=== PATIENT | female | born 1990 | race Two or more races ===

== ENCOUNTER 2019-09-25 07:00 | Inpatient (IN) | payer MEDICAID ==
[2019-09-25] MEDS ORDERED: Misoprostol 25 MCG (1/4 of 100 MCG) Tab VAG ONE (07:13)
[2019-09-25] MEDS ORDERED: Lactated Ringers 1,000 ML IV ONE (08:35)
[2019-09-25] MEDS ORDERED: Sodium Chloride 0.9% 10 ML Syringe FLUSH PRN (08:39)
[2019-09-25] MEDS: Lactated Ringers 1,000 ML IV SCH ×2 (12:09→20:11)
[2019-09-25] MEDS ORDERED: Nalbuphine 10 MG/1 ML Vial IVPUSH PRN (21:06)
[2019-09-25] MEDS ORDERED: Nalbuphine 10 MG/1 ML Vial ONE (21:14)
--- NOTE | 2019-09-25 23:15 | PCM.DEL ---
L & D Note - General Info Date of Service: 09/25/19 - Delivery Note Labor: Augmented by ARM, Induced by Oxytocin Cervical Ripening Method: Misoprostil, Oxytocin Delivery Outcome: Livebirth Infant Delivery Method: Spontaneous Vaginal Delivery-Single Presentation: Left Occiput Anterior (AURELIANO) Nuchal Cord: Present Anesthesia Type: None Episiotomy Type: None Laceration: Periurethral Placenta: Intact, Spontaneous Cord: 3 Vessels Resuscitation Needed: No [place]: Stimulated, Warmed, [place] Used, Warmer Used Second Stage Interventions: Reports: Second Nurse Assessed Progress of Descent, Second Nurse Reviewed Heart Tones, Encouragement Given, Nurse Consultation Requested, Pushing Effectively, Pushing, Birthing Stool Induction Criteria - Mckeon Score Mckeon Score Dilation: 1-2 cm Mckeon Score Consistency: Soft Mckeon Score Cervix Position: Posterior Mckeon Score Presenting Part: Reports: Cephalic - Induction Gestational Age >/= 39 wks: Yes Reassuring Monitoring Strip: Yes Absence of Tachy Systole: Yes - Augmentation Estimated Pelvis: Reports: Adequate Weight Estimated:: Reports: SGA Reassuring Monitoring Strip: Yes Absence of Tachy Systole: Yes - General Info Date of Service: 09/25/19 Functional Status: Reports: Pain Controlled - Review of Systems General: Reports: No Symptoms HEENT: Reports: No Symptoms Pulmonary: Reports: No Symptoms Cardiovascular: Reports: No Symptoms Gastrointestinal: Reports: No Symptoms Genitourinary: Reports: No Symptoms Musculoskeletal: Reports: No Symptoms Skin: Reports: No Symptoms Neurological: Reports: No Symptoms Psychiatric: Reports: No Symptoms - Patient Data Vitals - Most Recent: Last Vital Signs Temp 97.7 F 09/25/19 08:25 Pulse 66 09/25/19 22:00 Resp 20 09/25/19 21:30 BP 158/86 H 09/25/19 22:00 Pulse Ox 100 09/25/19 12:10 Weight - Most Recent: 74.843 kg I&O - Last 24 Hours: Intake & Output 09/25/19 09/25/19 09/26/19 14:59 22:59 06:59 Intake Total 1340 Balance 1340 Med Orders - Current: Current Medications Oxytocin/Sodium Chloride (Pitocin In Ns 20 Units/1,000 Ml) 20 unit in 1,000 mls @ 6 mls/hr IV TITRATE CHRISTO; Protocol Last Titration: 09/25/19 21:20 Dose: 4 munits/min, 12 mls/hr Lactated Ringer's (Ringers, Lactated) 1,000 mls @ 125 mls/hr IV ASDIRECTED CHRISTO Last Admin: 09/25/19 20:11 Dose: 125 mls/hr Nalbuphine HCl (Nubain) 10 mg IVPUSH Q3H PRN PRN Reason: Pain Last Admin: 09/25/19 21:18 Dose: 10 mg Sodium Chloride (Saline Flush) 10 ml FLUSH ASDIRECTED PRN PRN Reason: Keep Vein Open Last Admin: 09/25/19 08:15 Dose: 10 ml Discontinued Medications Lactated Ringer's (Ringers, Lactated) 1,000 mls @ 999 mls/hr IV BOLUS ONE Stop: 09/25/19 09:35 Last Admin: 09/25/19 08:35 Dose: 999 mls/hr Misoprostol (Cytotec) 25 mcg VAG ONETIME ONE Stop: 09/25/19 07:14 Last Admin: 09/25/19 08:06 Dose: 25 mcg Nalbuphine HCl (Nubain) Confirm Administered Dose 10 mg .ROUTE .STK-MED ONE Stop: 09/25/19 21:15 Last Admin: 09/25/19 21:26 Dose: Not Given - Exam General: Alert, Oriented HEENT: Pupils Equal, Pupils Reactive, EOMI, Mucous Membr. Moist/Cable Neck: Supple Lungs: Clear to Auscultation, Normal Respiratory Effort Cardiovascular: Regular Rate, Regular Rhythm GI/Abdominal Exam: Normal Bowel Sounds, Soft, Non-Tender, No Organomegaly, No Distention, No Abnormal Bruit, No Mass, Pelvis Stable (Female) Exam: Normal External Exam, Normal Speculum Exam, Normal Bimanual Exam Back Exam: Normal Inspection, Full Range of Motion Extremities: Normal Inspection, Normal Range of Motion, Non-Tender, No Pedal Edema, Normal Capillary Refill Skin: Warm, Dry, Intact Wound/Incisions: Healing Well Neurological: No New Focal Deficit Psy/Mental Status: Alert, Normal Affect, Normal Mood - Problem List & Annotations (1) Delivery normal SNOMED Code(s): 11899929, 484182923 Code(s): O80 - ENCOUNTER FOR FULL-TERM UNCOMPLICATED DELIVERY Status: Acute Current Visit: Yes - Problem List Review Problem List Initiated/Reviewed/Updated: Yes - My Orders Last 24 Hours: My Active Orders 09/25/19 07:10 Patient Status [ADT] Routine Monitoring [RC] CONTINUOUS Resuscitation Status Routine 09/25/19 08:26 Biophysical Profile [WOMSER] Stat 09/25/19 08:39 Sodium Chloride 0.9% [Saline Flush] 10 ml FLUSH ASDIRECTED PRN Peripheral IV Insertion Adult [OM.PC] Routine 09/25/19 09:28 BPP wo NST [US] Routine 09/25/19 10:40 Communication Order [RC] ASDIRECTED Communication Order [RC] ASDIRECTED Communication Order [RC] ASDIRECTED Communication Order [RC] ASDIRECTED Notify Provider [RC] PRN Notify Provider [RC] STAT Vital Signs [RC] PER UNIT ROUTINE 09/25/19 12:30 Lactated Ringers [Ringers, Lactated] 1,000 ml IV ASDIRECTED Oxytocin/Normal Saline [Pitocin in NS 20 Units/1,000 ML] 20 unit in 1,000 ml IV TITRATE 09/25/19 21:06 Nalbuphine [Nubain] 10 mg IVPUSH Q3H PRN 09/25/19 23:12 Vital Signs [RC] PFP Ibuprofen [Motrin] 600 mg PO Q4H PRN Assess Lochia [WOMSER] Per Unit Routine 09/25/19 Breakfast Regular Diet [DIET] 09/26/19 05:11 CBC WITH AUTO DIFF [HEME] AM - Plan Plan:: Routine care
[2019-09-26] MEDS: Ibuprofen 600 MG Tab PO PRN ×2 (01:35→10:51)
--- NOTE | 2019-09-26 08:51 | PCM.PNPP ---
- General Info Date of Service: 09/26/19 Subjective Update: Dong well. Breast feeding Functional Status: Reports: Pain Controlled - Review of Systems General: Reports: No Symptoms HEENT: Reports: No Symptoms Pulmonary: Reports: No Symptoms Cardiovascular: Reports: No Symptoms Gastrointestinal: Reports: No Symptoms Genitourinary: Reports: No Symptoms Musculoskeletal: Reports: No Symptoms Skin: Reports: No Symptoms Neurological: Reports: No Symptoms Psychiatric: Reports: No Symptoms - General Info Date of Service: 09/27/19 - Patient Data Vital Signs - Most Recent: Last Vital Signs Temp 97.7 F 09/25/19 08:25 Pulse 81 09/26/19 01:13 Resp 20 09/25/19 21:30 BP 107/66 09/26/19 01:13 Pulse Ox 100 09/25/19 12:10 Weight - Most Recent: 74.843 kg I&O - Last 24 Hours: Intake & Output 09/25/19 09/26/19 09/26/19 22:59 06:59 14:59 Intake Total 1340 1947 Balance 1340 1947 Lab Results - Last 24 Hours: Laboratory Results - last 24 hr 09/26/19 Range/Units 06:10 WBC 15.3 H (4.5-12.0) X10-3/uL RBC 3.95 (3.23-5.20) x10(6)uL Hgb 10.1 L (11.5-15.5) g/dL Hct 31.0 (30.0-51.3) % MCV 78.5 L (80-96) fL MCH 25.5 L (27.7-33.6) pg MCHC 32.5 (32.2-35.4) g/dL RDW 14.6 (11.5-15.5) % Plt Count 252 (125-369) X10(3)uL MPV 11.1 H (7.4-10.4) fL Neut % (Auto) 81.4 (46-82) % Lymph % (Auto) 12.4 L (13-37) % Warren % (Auto) 5.8 (4-12) % Eos % (Auto) 0 L (1.0-5.0) % Baso % (Auto) 0 (0-2) % Neut # (Auto) 12.5 H (1.6-8.3) # Lymph # (Auto) 1.9 (0.6-5.0) # Warren # (Auto) 0.9 (0.0-1.3) # Eos # (Auto) 0.0 (0.0-0.8) # Baso # (Auto) 0.0 (0.0-0.2) # Med Orders - Current: Current Medications Ibuprofen (Motrin) 600 mg PO Q4H PRN PRN Reason: Pain Last Admin: 09/26/19 01:35 Dose: 600 mg Nalbuphine HCl (Nubain) 10 mg IVPUSH Q3H PRN PRN Reason: Pain Last Admin: 09/25/19 21:18 Dose: 10 mg Sodium Chloride (Saline Flush) 10 ml FLUSH ASDIRECTED PRN PRN Reason: Keep Vein Open Last Admin: 09/25/19 08:15 Dose: 10 ml Discontinued Medications Lactated Ringer's (Ringers, Lactated) 1,000 mls @ 999 mls/hr IV BOLUS ONE Stop: 09/25/19 09:35 Last Admin: 09/25/19 08:35 Dose: 999 mls/hr Oxytocin/Sodium Chloride (Pitocin In Ns 20 Units/1,000 Ml) 20 unit in 1,000 mls @ 6 mls/hr IV TITRATE CHRISTO; Protocol Last Titration: 09/25/19 21:20 Dose: 4 munits/min, 12 mls/hr Lactated Ringer's (Ringers, Lactated) 1,000 mls @ 125 mls/hr IV ASDIRECTED CHRISTO Last Admin: 09/25/19 20:11 Dose: 125 mls/hr Misoprostol (Cytotec) 25 mcg VAG ONETIME ONE Stop: 09/25/19 07:14 Last Admin: 09/25/19 08:06 Dose: 25 mcg Nalbuphine HCl (Nubain) Confirm Administered Dose 10 mg .ROUTE .STK-MED ONE Stop: 09/25/19 21:15 Last Admin: 09/25/19 21:26 Dose: Not Given - Interaction Infant Disposition, : [place] in Room with Family Support Person: - Recovery Exam Fundal Tone: Firm Fundal Level: 1 Fingerbreadths Above Umbilicus Fundal Placement: Midline Lochia Amount: Small Lochia Color: Rubra/Red Perineum Description: Edematous Episiotomy/Laceration: None Bladder Status: Voiding - Exam General: Alert, Oriented HEENT: Pupils Equal Neck: Supple Lungs: Clear to Auscultation, Normal Respiratory Effort Cardiovascular: Regular Rate, Regular Rhythm GI/Abdominal Exam: Normal Bowel Sounds, Soft, Non-Tender, No Organomegaly, No Distention, No Abnormal Bruit, No Mass, Pelvis Stable Extremities: Normal Inspection, Normal Range of Motion, Non-Tender, No Pedal Edema, Normal Capillary Refill Skin: Warm, Dry, Intact Wound/Incisions: Healing Well Neurological: No New Focal Deficit Psy/Mental Status: Alert, Normal Affect, Normal Mood - Problem List & Annotations (1) Delivery normal SNOMED Code(s): 33394126, [id number] Code(s): O80 - ENCOUNTER FOR FULL-TERM UNCOMPLICATED DELIVERY Status: Acute Current Visit: Yes - Problem List Review Problem List Initiated/Reviewed/Updated: Yes - My Orders Last 24 Hours: My Active Orders 09/25/19 08:26 Biophysical Profile [WOMSER] Stat 09/25/19 08:39 Sodium Chloride 0.9% [Saline Flush] 10 ml FLUSH ASDIRECTED PRN Peripheral IV Insertion Adult [OM.PC] Routine 09/25/19 09:28 BPP wo NST [US] Routine 09/25/19 10:40 Vital Signs [RC] PER UNIT ROUTINE 09/25/19 19:25 Patient Status [ADT] Routine 09/25/19 21:06 Nalbuphine [Nubain] 10 mg IVPUSH Q3H PRN 09/25/19 23:12 Vital Signs [RC] PFP Ibuprofen [Motrin] 600 mg PO Q4H PRN Assess Lochia [WOMSER] Per Unit Routine - Plan Plan:: Routine care
[2019-09-27] MEDS: Ibuprofen 600 MG Tab PO PRN (09:00)
--- NOTE | 2019-09-27 09:19 | PCM.PNPP ---
- General Info Date of Service: 09/27/19 Subjective Update: Dong well. Breast feeding Functional Status: Reports: Pain Controlled - Review of Systems General: Reports: No Symptoms Pulmonary: Reports: No Symptoms Cardiovascular: Reports: No Symptoms Gastrointestinal: Reports: No Symptoms - General Info Date of Service: 09/27/19 - Patient Data Vital Signs - Most Recent: Last Vital Signs Temp 98.4 F 09/27/19 08:55 Pulse 74 09/27/19 08:55 Resp 16 09/27/19 08:55 BP 115/63 09/27/19 08:55 Pulse Ox 100 09/27/19 08:55 Weight - Most Recent: 74.843 kg Med Orders - Current: Current Medications Ibuprofen (Motrin) 600 mg PO Q4H PRN PRN Reason: Pain Last Admin: 09/27/19 09:00 Dose: 600 mg Nalbuphine HCl (Nubain) 10 mg IVPUSH Q3H PRN PRN Reason: Pain Last Admin: 09/25/19 21:18 Dose: 10 mg Sodium Chloride (Saline Flush) 10 ml FLUSH ASDIRECTED PRN PRN Reason: Keep Vein Open Last Admin: 09/25/19 08:15 Dose: 10 ml Discontinued Medications Lactated Ringer's (Ringers, Lactated) 1,000 mls @ 999 mls/hr IV BOLUS ONE Stop: 09/25/19 09:35 Last Admin: 09/25/19 08:35 Dose: 999 mls/hr Oxytocin/Sodium Chloride (Pitocin In Ns 20 Units/1,000 Ml) 20 unit in 1,000 mls @ 6 mls/hr IV TITRATE CHRISTO; Protocol Last Titration: 09/25/19 21:20 Dose: 4 munits/min, 12 mls/hr Lactated Ringer's (Ringers, Lactated) 1,000 mls @ 125 mls/hr IV ASDIRECTED CHRISTO Last Admin: 09/25/19 20:11 Dose: 125 mls/hr Misoprostol (Cytotec) 25 mcg VAG ONETIME ONE Stop: 09/25/19 07:14 Last Admin: 09/25/19 08:06 Dose: 25 mcg Nalbuphine HCl (Nubain) Confirm Administered Dose 10 mg .ROUTE .STK-MED ONE Stop: 09/25/19 21:15 Last Admin: 09/25/19 21:26 Dose: Not Given - Interaction Disposition, : in Room with Family Support Person: - Recovery Exam Fundal Tone: Firm Fundal Level: 1 Fingerbreadths Above Umbilicus Fundal Placement: Midline Lochia Amount: Small Lochia Color: Rubra/Red Perineum Description: Edematous Episiotomy/Laceration: None Bladder Status: Voiding - Exam General: Alert, Oriented HEENT: Pupils Equal Neck: Supple Lungs: Clear to Auscultation, Normal Respiratory Effort Cardiovascular: Regular Rate, Regular Rhythm GI/Abdominal Exam: Normal Bowel Sounds, Soft, Non-Tender, No Organomegaly, No Distention, No Abnormal Bruit, No Mass, Pelvis Stable Extremities: Normal Inspection, Normal Range of Motion, Non-Tender, No Pedal Edema, Normal Capillary Refill Skin: Warm, Dry, Intact Wound/Incisions: Healing Well Neurological: No New Focal Deficit Psy/Mental Status: Alert, Normal Affect, Normal Mood - Problem List & Annotations (1) Delivery normal SNOMED Code(s): 00354808, [id number] Code(s): O80 - ENCOUNTER FOR FULL-TERM UNCOMPLICATED DELIVERY Status: Acute Current Visit: Yes - Problem List Review Problem List Initiated/Reviewed/Updated: Yes - Plan Plan:: Routine discharge.MMR vaccine recommended
[2019-09-27] MEDS ORDERED: Measles, Mumps & Rubella Vaccine 0.5 ML SDV SUBCUT ONE (09:21)
--- NOTE | 2019-09-28 10:58 | US ---
INDICATION: Decreased movement. ULTRASOUND, BIOPHYSICAL PROFILE WITHOUT NST: Utilizing 45 minutes of ultrasonic surveillance time, breathing, gross body movements, tone , as well as qualitative amniotic fluid volume, were evaluated. All parameters were found to be normal for a normal biophysical profile score of 8/8. A regular heart rate of 133 BPM was noted. JENIFER was 10.10 cm. Longitudinal lie with cephalic presentation is noted. No adnexal mass lesions or free fluid collections were demonstrated. IMPRESSION: Normal biophysical profile. MTDD
== END 2019-09-27 16:00 | disposition home or self-care (01) | DRG 807 ==
LOC: FB.OB 07:00 → INTOOBSV 07:00 → OBSVTOIN 19:00 → FB.OB 19:00
PROVIDERS: ADMIT Family Medicine; ATTEND Family Medicine
PROC: 10E0XZZ Delivery of Products of Conception, External Approach (ICD-10-PCS; principal; 2019-09-25)
PROC: 3E033VJ Introduction of Other Hormone into Peripheral Vein, Percutaneous Approach (ICD-10-PCS; 2019-09-25)
PROC: 10907ZC Drainage of Amniotic Fluid, Therapeutic from Products of Conception, Via Natural or Artificial Opening (ICD-10-PCS; 2019-09-25)
PROC: 3E0P7VZ Introduction of Hormone into Female Reproductive, Via Natural or Artificial Opening (ICD-10-PCS; 2019-09-25)
DX: O69.81X0 Labor and delivery complicated by cord around neck, without compression, not applicable or unspecified (principal); Z37.0 Single live birth; Z3A.39 39 weeks gestation of pregnancy
CPT/HCPCS: 36415; 59409; 76819; 85025; A9270-GY; J2300; J2590; J7120